=== PATIENT | female | born 1975 | race American Indian/Alaskan Native ===

== ENCOUNTER 2019-02-08 09:02 | Emergency (ER) | payer OTHER ==
[~2019-02-08] VITALS: Ht 157.5 cm; Wt 49.0 kg
[2019-02-08 09:05] VITALS: BP 137/92
--- NOTE | 2019-02-08 09:10 | NUR ---
PT AMB TO BED 6 WITH STEADY GAIT
--- NOTE | 2019-02-08 09:14 | NUR ---
Patient being evaluated by DR MOORE at bedside.
--- NOTE | 2019-02-08 09:14 | NUR ---
PT TO ED WITH C/O SOB X THIS MORNING. LUNG SOUNDS CLEAR BILATERALLY TO ASCULTATION. NO TACHYPNEA, RESPIRATORY DISTRESS NOTED. RESP EVEN/UNLABORED. PT IN BED FOR MD GRIFFITH.
[2019-02-08] MEDS ORDERED: predniSONE 20 MG TAB PO ONE (09:15)
[2019-02-08] MEDS ORDERED: IPRATROPIUM 0.02% 0.5 MG/2.5 ML NEBU INH ONE (09:15)
[2019-02-08] MEDS ORDERED: ALBUTEROL 0.083% 2.5 MG/3 ML NEBU INH ONE (09:15)
--- NOTE | 2019-02-08 09:50 | NUR ---
PT REPORTS RELIEF AFTER BREATHING TX.
[2019-02-08 10:22] VITALS: BP 137/92
== END 2019-02-08 10:22 | disposition home or self-care (01) ==
LOC: MED 09:02
DX: J45.901 Unspecified asthma with (acute) exacerbation (principal); I10 Essential (primary) hypertension; E78.5 Hyperlipidemia, unspecified; Z98.890 Other specified postprocedural states
CPT/HCPCS: 94640; 99283; J7512; J7613; J7644